=== PATIENT | female | born 1970 | race Two or more races ===

== ENCOUNTER 2017-12-27 13:35 | Emergency (ER) | payer MEDICAID ==
[~2017-12-27] VITALS: Ht 165.1 cm; Wt 68.0 kg
[2017-12-27 13:55] VITALS: BP 114/73
== END 2017-12-27 14:48 | disposition home or self-care (01) ==
LOC: EDBD 13:35 → ER 13:38
DX: S81.811A Laceration without foreign body, right lower leg, initial encounter (principal); E07.9 Disorder of thyroid, unspecified; Z90.710 Acquired absence of both cervix and uterus; W11.XXXA Fall on and from ladder, initial encounter; Y93.89 Activity, other specified; Y99.8 Other external cause status; Y92.89 Other specified places as the place of occurrence of the external cause
CPT/HCPCS: 12002; 73590